=== PATIENT | male | born 1950 | race Caucasian/White ===

== ENCOUNTER 2018-12-01 18:40 | Inpatient (IN) | payer OTHER, MEDICAID ==
[~2018-12-01] VITALS: Ht 175.3 cm; Wt 87.7 kg
[~2018-12-01 18:40] MED LIST: HTN MEDS
[2018-12-01] MEDS: morphine 10 MG INJ IM ONE ×3 (19:00→19:15)
[2018-12-01] MEDS ORDERED: BUPIVACAINE 0.5% 30 ML VIAL INJ ONE (20:00)
[2018-12-01] MEDS ORDERED: OXYCODONE/ACETAMINOPHEN (5/325) TAB PO ONE (20:00)
[2018-12-01] MEDS: LIDOCAINE 1% (MPF) 30 ML INJ INJ ONE ×2 (20:00→21:40)
[2018-12-01] MEDS ORDERED: OMEP20CA16 PO (20:52)
[2018-12-01] MEDS ORDERED: AMLO1CAP10 PO (20:52)
[2018-12-01] MEDS ORDERED: METH10TA2 PO (20:52)
[2018-12-01] MEDS ORDERED: ONDANSETRON 4 MG INJ IV PRN (22:00)
[2018-12-01] MEDS ORDERED: ACETAMINOPHEN 325 MG TAB PO PRN (22:00)
--- NOTE | 2018-12-01 22:53 | CONS ---
Assessment/Plan Assessment/Plan Hospital Course (Demo Recall) 68-year-old male with trimalleolar right ankle fracture. At this time I discussed the patient that I recommend a hematoma block and reduction and splinting. Also recommended that he undergoes open reduction internal fixation of this bimalleolar ankle fracture as it is very unstable and displaced. I reviewed the benefits and risks with the patient. Risks include but not limited to medical complications, cardiopulmonary comp occasions, anesthetic complications, bleeding, infection, nonunion, malunion, hardware failure, traumatic arthritis, stiffness, pain, need for further surgery, neurovascular injury. He understood these benefits and risks and wished to proceed with surgery. Plan: Hematoma block and closed reduction of right trimalleolar ankle fracture. Nonweightbearing right lower extremity N.p.o. at midnight Pain control Elevate right lower extremity Plan for surgery tomorrow morning Medical clearance Assessment/Plan (Daily) Procedure: Hematoma block and closed reduction and splinting of right ankle fracture dislocation. The anterior medial aspect of the right ankle was prepped with alcohol. 5 mL of 1% lidocaine was used subcutaneously to numb the skin. This was followed by a large needle and 20 mL of 1:1 mixture of 1% lidocaine and 0.5% bupivacaine. This was injected into the ankle joint. The patient had good relief from pain. At this time the ankle was reduced with appropriate maneuvers. The lower leg was padded with cast padding followed by a posterior slab sugar tong plaster splint. A three-point mold was performed to hold the fracture reduced. Consultation Date/Type/Reason Admit Date/Time Date of Consultation: December 01, 2018 Reason for Consultation Right ankle fracture Date/Time of Note DATE: 12/01/18 TIME: 22:48 Hx of Present Illness This is a 68-year-old male who slipped and fell at his home today and presented emergency department with severe right ankle pain. He is unable to bear weight. On presentation the ankle had gross deformity. X-rays were obtained. X-rays demonstrate a trimalleolar ankle fracture orthopedics was consulted. Patient denies any numbness and tingling. He does have multiple medical problems include hepatitis C, hypertension, MYRA, GERD. He is on a methadone program secondary to opiate abuse in the past. He denies any previous ankle injury. Denies pain elsewhere. Denies head trauma. Denies loss of consciousness. Patient denies fever, chills, shortness of breath, chest pain, nausea/vomiting, constipation, diarrhea, numbness, and tingling. Past Medical History Hepatitis C Hypertension MYRA GERD Home Meds Reported Medications Methadone Hcl* (Methadone*) 10 Mg Tab, 40 MG PO DAILY, TAB 12/01/18 Omeprazole* (Omeprazole*) 20 Mg Capsule.dr, 20 MG PO DAILY, #30 CAP 12/01/18 Amlodipine Besylate/Benazepril (Amlodipine-Benazepril 5-20 mg) 1 Each Capsule, 1 CAP PO DAILY for 90 Days, #90 TAKE ONE CAPSULE BY MOUTH EVERY DAY 12/01/18 Discontinued Reported Medications [Htn Meds] No Conflict Check 11/29/10 Medications Current Medications Ondansetron HCl (Zofran Inj) 4 mg BRIDGE ORDER PRN IV NAUSEA/VOMITING; Start 12/01/18 at 22:00; Stop 12/02/18 at 21:59 Acetaminophen (Tylenol Tab) 650 mg ER BRIDGE PRN PO .MILD PAIN 1-3 OR TEMP; Start 12/01/18 at 22:00; Stop 12/02/18 at 21:59 Allergies: Coded Allergies: No Known Allergy (Unverified , 12/01/18) Past Surgical History Past Surgical Hx: noncontributory Family History Significant Family History: no pertinent family hx Social History Alcohol Use: rarely Smoking Status: Former smoker Drug Use: cocaine Exam/Review of Systems Exam Vitals Vital Signs Date Temp Pulse Resp B/P (MAP) Pulse Ox O2 O2 Flow FiO2 Time Delivery Rate 12/01/18 77 19 144/85 96 Room Air 22:35 (104) 12/01/18 98.8 18:45 Exam General: Awake, alert, in no acute distress, pleasant and cooperative Heart: regular rhythm Lungs: breathing comfortably, no tachypnea or dyspnea MUSCULOSKELETAL: Right lower extremity: Skin is intact. There is ecchymosis and swelling of the right ankle. There is gross deformity of the right ankle. There is diffuse tenderness palpation along entire right ankle. The remainder of the lower extremity was nontender to palpation. Sensation intact to light touch in a sural, saphenous, deep peroneal, superficial peroneal, medial and lateral plantar nerve distribution. Motor is intact, patient able to dorsiflex and plantarflex ankle and extend and flex great toe. Dorsalis Pedis pulse +2, Brisk capillary refill. Compartments are soft. Calves non-tender to palpation bilaterally. Results Result Diagram: 12/01/18212712/01/182127 Results 24hrs Laboratory Tests Test 12/01/18 21:28 White Blood Count 15.2 H Red Blood Count 4.24 L Hemoglobin 12.3 L Hematocrit 38.0 L Mean Corpuscular Volume 89.6 Mean Corpuscular Hemoglobin 29.0 Mean Corpuscular Hemoglobin Concent 32.4 Red Cell Distribution Width 14.1 Platelet Count 176 Mean Platelet Volume 11.3 H Immature Granulocytes % 0.400 Neutrophils % 86.8 H Lymphocytes % 7.6 L Monocytes % 4.8 Eosinophils % 0.1 Basophils % 0.3 Nucleated Red Blood Cells % 0.0 Immature Granulocytes # 0.060 H Neutrophils # 13.2 H Lymphocytes # 1.2 Monocytes # 0.7 Eosinophils # 0.0 Basophils # 0.1 Nucleated Red Blood Cells # 0.0 Prothrombin Time 13.0 Prothrombin Time Ratio 1.0 INR International Normalized Ratio 0.97 Activated Partial Thromboplast Time 26.4 Sodium Level 139 Potassium Level 4.7 Chloride Level 104 Carbon Dioxide Level 26 Anion Gap 9 Blood Urea Nitrogen 17 Creatinine 1.11 Est Glomerular Filtrat Rate mL/min > 60 Glucose Level 103 Calcium Level 9.3 Imaging Imaging 3 views of the right ankle demonstrate a trimalleolar ankle fracture with significant subluxation of the tibiotalar joint. 3 views of the right ankle post reduction demonstrate overlying cast material. We demonstrates a trimalleolar ankle fracture. Improved alignment of the tibiotalar joint Medications Medication Current Medications Ondansetron HCl (Zofran Inj) 4 mg BRIDGE ORDER PRN IV NAUSEA/VOMITING; Start 12/01/18 at 22:00; Stop 12/02/18 at 21:59 Acetaminophen (Tylenol Tab) 650 mg ER BRIDGE PRN PO .MILD PAIN 1-3 OR TEMP; Start 12/01/18 at 22:00; Stop 12/02/18 at 21:59 SARTHAK ESCAMILLA MD December 01, 2018 22:53
--- NOTE | 2018-12-01 22:57 | ERD ---
ER Documentation Chief Complaint Chief Complaint [id number],from home,R ankle pain,swelling,r/t [id number] HPI 68-year-old female brought in by ambulance after a slip and fall at home with right ankle pain. He denies any numbness or tingling. He denies any other injuries or pain. Pain is a 10 out of 10, worse with any type of movement of the right lower extremity, no alleviating factors, constant. ROS All systems reviewed and are negative except as per history of present illness. Medications Home Meds Reported Medications Methadone Hcl* (Methadone*) 10 Mg Tab, 40 MG PO DAILY, TAB 12/01/18 Omeprazole* (Omeprazole*) 20 Mg Capsule.dr, 20 MG PO DAILY, #30 CAP 12/01/18 Amlodipine Besylate/Benazepril (Amlodipine-Benazepril 5-20 mg) 1 Each Capsule, 1 CAP PO DAILY for 90 Days, #90 TAKE ONE CAPSULE BY MOUTH EVERY DAY 12/01/18 Discontinued Reported Medications [Htn Meds] No Conflict Check 11/29/10 Allergies Allergies: Coded Allergies: No Known Allergy (Unverified , 12/01/18) PMhx/Soc History of Surgery: Yes (Exploratory laparotomy, gall bladder removal) Anesthesia Reaction: No Hx Neurological Disorder: No Hx Respiratory Disorders: No Hx Cardiac Disorders: Yes (HTN) Hx Psychiatric Problems: Yes (anxiety) Hx Miscellaneous Medical Probl: Yes (chronic drug dependence, GERD) Hx Alcohol Use: No Hx Substance Use: Yes (. 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 HEAD: Atraumatic. No facial TTP. EYES: EOMI. PERRL. No subconjunctival hemorrhage ENT: Nose non-tender. No septal hematoma. Nasopharynx and oropharynx clear. No dental, lip, or tongue injury NECK: No cervical spine TTP RESPIRATORY: Clear to auscultation bilaterally. No increased work of breathing. CV: Regular rate and rhythm. Cap refill <2sec. 2+ Radial and 2+ dorsalis pedis pulses. ABDOMEN: Soft, non-distended, non-tender. No guarding or rebound. Normal active bowel sounds. BACK: No thoracic or lumbar spine TTP. No CVA tenderness. PELVIS: stable, nontender hips EXTREMITIES: Right lower extremity with ankle deformity and swelling. Bruising seen around the medial ankle. Unable to range secondary to pain. Proximal to the ankle, the bones are nontender and there are no deformities. No hip or knee joint swelling. 2+ DP and PT pulses. All other extremities normal to inspection and palpation without deformities and with full range of motion at all joints. SKIN: Warm, dry, pink. NEUROLOGIC: A&Ox4. No facial asymmetry. Motor and sensory function intact to all 4 extremities. Result Diagram: 12/01/18212712/01/182127 Results 24 hrs Laboratory Tests Test 12/01/18 21:28 White Blood Count 15.2 10^3/ul Red Blood Count 4.24 10^6/ul Hemoglobin 12.3 g/dl Hematocrit 38.0 % Mean Corpuscular Volume 89.6 fl Mean Corpuscular Hemoglobin 29.0 pg Mean Corpuscular Hemoglobin Concent 32.4 g/dl Red Cell Distribution Width 14.1 % Platelet Count 176 10^3/UL Mean Platelet Volume 11.3 fl Immature Granulocytes % 0.400 % Neutrophils % 86.8 % Lymphocytes % 7.6 % Monocytes % 4.8 % Eosinophils % 0.1 % Basophils % 0.3 % Nucleated Red Blood Cells % 0.0 /100WBC Immature Granulocytes # 0.060 10^3/ul Neutrophils # 13.2 10^3/ul Lymphocytes # 1.2 10^3/ul Monocytes # 0.7 10^3/ul Eosinophils # 0.0 10^3/ul Basophils # 0.1 10^3/ul Nucleated Red Blood Cells # 0.0 10^3/ul Prothrombin Time 13.0 Sec Prothrombin Time Ratio 1.0 INR International Normalized Ratio 0.97 Activated Partial Thromboplast Time 26.4 Sec Sodium Level 139 mmol/L Potassium Level 4.7 mmol/L Chloride Level 104 mmol/L Carbon Dioxide Level 26 mmol/L Anion Gap 9 Blood Urea Nitrogen 17 mg/dl Creatinine 1.11 mg/dl Est Glomerular Filtrat Rate mL/min > 60 mL/min Glucose Level 103 mg/dl Calcium Level 9.3 mg/dl Current Medications Medications Dose Sig/María Elena Start Time Status Last (Trade) Ordered Route PRN Stop Time Admin Dose Reason Admin Morphine 8 mg ONCE ONCE 12/01/18 DC 12/01/18 Sulfate IM 19:00 12/01/18 19:15 (morphine) 19:01 Oxycodone/ 1 tab ONCE ONCE 12/01/18 DC 12/01/18 Acetaminophen PO 20:00 12/01/18 19:52 (Percocet 20:01 (5/ 325)) Lidocaine 30 ml ONCE ONCE 12/01/18 DC (Xylocaine INJ 20:00 12/01/18 1% (Mpf)) 20:13 Bupivacaine 20 ml ONCE ONCE 12/01/18 DC HCl INJ 20:00 12/01/18 (Marcaine 20:13 0.5%) Ondansetron 4 mg BRIDGE ORDER 12/01/18 HCl (Zofran PRN IV 22:00 12/02/18 Inj) NAUSEA/VOMITI 21:59 NG 650 mg ER BRIDGE 12/01/18 Acetaminophen PRN PO 22:00 12/02/18 (Tylenol .MILD PAIN 21:59 Tab) 1-3 OR TEMP Procedures/MDM EMERGENT LABS AND DIAGNOSTIC STUDIES: Lab Results above were reviewed and interpreted by me. CBC: Leukocytosis, likely stress response BMP: [no e/o clinically significant electrolyte abnormality severe acidosis, alkalosis, renal failure, diabetic ketoacidosis] 12-lead EKG was interpreted by Zen Barrientos MD: Normal Sinus Rhythm Normal axis Normal intervals No acute ST or T wave changes suggestive of acute ischemia or STEMI. Radiology Results as interpreted by Radiology below were reviewed by Cherie Barrientos MD: X-ray right ankle shows trimalleolar fracture with displacement Initial Nursing notes reviewed. Previous Medical Records requested via the Electronic Health Record. EMERGENCY DEPARTMENT COURSE / MEDICAL DECISION MAKING: Patient is presenting with right ankle injury. X-rays show evidence of a severe right ankle fracture with subluxation. He is neurovascularly intact on exam. I spoke with the orthopedist on-call, who came to see the patient. He reduced the ankle and placed the ankle in the splint. He recommends admitting the patient for medical clearance and for urgent surgery Accepting Care Team: Current data and ongoing care discussed. Time: Time of admission Primary Provider: Dr. Hunter Consulting: Dr. Valente with orthopedics Outstanding Data: none Departure Diagnosis: Primary Impression: Trimalleolar fracture of right ankle Encounter type: initial encounter Fracture type: closed Qualified Codes: S82.851A - Displaced trimalleolar fracture of right lower leg, initial encounter for closed fracture Condition: TERRY Holland MD December 01, 2018 22:57
[2018-12-02] VITALS (25 sets, daily range): BP systolic 119–157; BP diastolic 61–94; PULSE 55–78; RESP 10–24; Ht 175.3 cm; Wt 87.7 kg
--- NOTE | 2018-12-02 00:22 | HP ---
Date/Time of Note Date/Time of Note DATE: 12/02/18 TIME: 00:22 Assessment/Plan VTE Prophylaxis Pharmacological prophylaxis: heparin Lines/Catheters IV Catheter Type (from Nrsg): Peripheral IV Assessment/Plan Assessment/Plan 1. Right Maleolar ankle Fracture : s/p slip and fall accident at home: Status post closed reduction in the ER with plan surgical intervention in a.m. -Pain management -There is a plan for surgical intervention in the morning. -EKG in the ER without ST-T wave abnormalities. Patient not acutely having chest pain and is stated that he is able to walk for about an hour without getti ng short of breath. Will order a 2D echo prior to surgery -will get cardiology for clearance -Positive pressure ventilation as needed, but patient looks comfortable so I doubt he will need it 2. Recently diagnosed sleep Apnea, per patient -Patient stated that he had a cholecystectomy 2 months ago. He was diagnosed with sleep apnea a couple weeks ago. Work-up for sleep apnea was started post-o p -Patient is not on CPAP or BiPAP at home. He said he is able to walk for an hour without getting tired 3. History of illicit drug use: Currently on methadone, which will be continued 4. Hypertension: BP is in acceptable range 5. History of hepatitis C: Follow-up with PCP as outpatient Result Diagram: 12/01/18212712/01/182127 Results 24hrs Laboratory Tests Test 12/01/18 21:28 White Blood Count 15.2 H Red Blood Count 4.24 L Hemoglobin 12.3 L Hematocrit 38.0 L Mean Corpuscular Volume 89.6 Mean Corpuscular Hemoglobin 29.0 Mean Corpuscular Hemoglobin Concent 32.4 Red Cell Distribution Width 14.1 Platelet Count 176 Mean Platelet Volume 11.3 H Immature Granulocytes % 0.400 Neutrophils % 86.8 H Lymphocytes % 7.6 L Monocytes % 4.8 Eosinophils % 0.1 Basophils % 0.3 Nucleated Red Blood Cells % 0.0 Immature Granulocytes # 0.060 H Neutrophils # 13.2 H Lymphocytes # 1.2 Monocytes # 0.7 Eosinophils # 0.0 Basophils # 0.1 Nucleated Red Blood Cells # 0.0 Prothrombin Time 13.0 Prothrombin Time Ratio 1.0 INR International Normalized Ratio 0.97 Activated Partial Thromboplast Time 26.4 Sodium Level 139 Potassium Level 4.7 Chloride Level 104 Carbon Dioxide Level 26 Anion Gap 9 Blood Urea Nitrogen 17 Creatinine 1.11 Est Glomerular Filtrat Rate mL/min > 60 Glucose Level 103 Calcium Level 9.3 HPI/ROS Admit Date/Time Admit Date/Time Hx of Present Illness This is a 68-year-old male with a history of hypertension, MYRA, GERD, hepatitis C, history of drug abuse on methadone who presented to ER complaining of right ankle fracture status post slip and fall accident on home on a wet floor. In the ER he is found to have a tri malleolus fracture which was reduced. Plan for surgery in the morning. EKG in the ER without ST-T wave abnormalities. Patient reported that he had a cholecystectomy about 2 months ago. He said a few weeks ago he was diagnosed with sleep apnea. Currently not using CPAP or BiPAP at home. He said he is able to walk for about an hour without getting short of breath. He denies chest pain will order a 2D echo prior to surgery. will get cardiology for clearance PMH/Family/Social Past Medical History Past Surgical Hx: other (see hpi) Family History Significant Family History: no pertinent family hx Social History Alcohol Use: heavy (2 beers a day) Smoking Status: Never smoker Drug Use: none Exam Constitutional: other (no acute distress) ENMT: nl external ears & nose Neck: supple, non-tender Respiratory: normal air movement Cardiovascular: nl pulses Gastrointestinal: soft Extremities: normal pulses Medical History: other (See HPI) Medications Current Medications Ondansetron HCl (Zofran Inj) 4 mg BRIDGE ORDER PRN IV NAUSEA/VOMITING; Start 12/01/18 at 22:00; Stop 12/02/18 at 21:59 Acetaminophen (Tylenol Tab) 650 mg ER BRIDGE PRN PO .MILD PAIN 1-3 OR TEMP; Start 12/01/18 at 22:00; Stop 12/02/18 at 21:59 Coded Allergies: No Known Allergy (Unverified , 12/01/18) Past Surgical History Past Surgical Hx: other (See HPI) Family History Significant Family History: no pertinent family hx Social History Alcohol Use: rarely Smoking Status: Former smoker Drug Use: other (He has history of illicit drug use) Exam/Review of Systems Vital Signs Vitals Vital Signs Date Temp Pulse Resp B/P (MAP) Pulse Ox O2 O2 Flow FiO2 Time Delivery Rate 5/3/19 77 19 144/85 96 Room Air 22:35 (104) 12/01/18 98.8 18:45 Exam Constitutional: other (No acute distress. Able to begin full sentence) Head: normocephalic, atraumatic Eyes: EOMI, PERRL Respiratory: clear to auscultation, normal air movement Cardiovascular: regular rate and rhythm Gastrointestinal: soft Extremities: other (Right lower extremity and foot is covered) MARK VELASQUEZ MD December 02, 2018 00:22
[2018-12-02] MEDS ORDERED: ALBUTEROL/IPRATROPIUM (NEB) 3 ML AMP HHN PRN (00:30)
[2018-12-02] MEDS ORDERED: NACL 0.9% 3 ML SYG IV SCH ×2 (00:30→19:00)
[2018-12-02] MEDS ORDERED: ONDANSETRON 4 MG INJ IV PRN ×2 (00:30→19:00)
[2018-12-02] MEDS: DEXTROSE 5%-0.45% NACL 1,000 ML IV SCH ×3 (00:53→21:00)
[2018-12-02] MEDS ORDERED: LIDOCAINE 2% (SDV) 5 ML INJ ONE (07:00)
[2018-12-02] MEDS: FAMOTIDINE 20 MG INJ IV SCH ×2 (09:34→22:04)
[2018-12-02] MEDS ORDERED: METHADONE 10 MG TAB PO ONE (10:00)
--- NOTE | 2018-12-02 12:19 | PN ---
Date/Time of Note Date/Time of Note DATE: 12/02/18 TIME: 12:13 Assessment/Plan VTE Prophylaxis Risk score (from Ns)>0 risk: 10 SCD applied (from Ns): No SCD contraindicated: other Pharmacological prophylaxis: NA/contraindicated Pharm contraindication: surgical contra Lines/Catheters IV Catheter Type (from Nrs): Peripheral IV Assessment/Plan Assessment/Plan 1. Right Malleolar ankle Fracture s/p mechanical fall - patient is s/p closed reduction in the ER - Ortho consultation appreciated and plans for surgical intervention - continue pain control - EKG with no acute ST changes. Patient recently had lap farshad with no complications 2. MYRA - continue outpatient workup 3. History of illicit drug use - continue on methadone 4. Hypertension - stable 5. History of hepatitis C - outpatient follow up 6. Disposition - Medically cleared for surgical intervention on Right ankle. Patient able to ambulate without SOB and denies any cardiac or pulmonary sx at this time Result Diagram: 12/02/18 0426 12/02/18 0426 Results 24hrs Laboratory Tests Test 12/01/18 21:28 12/02/18 04:26 White Blood Count 15.2 H 8.9 # Red Blood Count 4.24 L 3.97 L Hemoglobin 12.3 L 11.6 L Hematocrit 38.0 L 36.1 L Mean Corpuscular Volume 89.6 90.9 Mean Corpuscular Hemoglobin 29.0 29.2 Mean Corpuscular Hemoglobin Concent 32.4 32.1 Red Cell Distribution Width 14.1 14.4 Platelet Count 176 154 Mean Platelet Volume 11.3 H 11.9 H Immature Granulocytes % 0.400 0.200 Neutrophils % 86.8 H 57.8 Lymphocytes % 7.6 L 30.0 Monocytes % 4.8 10.8 Eosinophils % 0.1 0.9 Basophils % 0.3 0.3 Nucleated Red Blood Cells % 0.0 0.0 Immature Granulocytes # 0.060 H 0.020 Neutrophils # 13.2 H 5.2 Lymphocytes # 1.2 2.7 Monocytes # 0.7 1.0 H Eosinophils # 0.0 0.1 Basophils # 0.1 0.0 Nucleated Red Blood Cells # 0.0 0.0 Prothrombin Time 13.0 Prothrombin Time Ratio 1.0 INR International Normalized Ratio 0.97 Activated Partial Thromboplast Time 26.4 Sodium Level 139 140 Potassium Level 4.7 4.5 Chloride Level 104 104 Carbon Dioxide Level 26 28 Anion Gap 9 8 Blood Urea Nitrogen 17 17 Creatinine 1.11 1.03 Est Glomerular Filtrat Rate mL/min > 60 > 60 Glucose Level 103 115 Calcium Level 9.3 9.0 Phosphorus Level 3.6 Magnesium Level 2.1 Total Bilirubin 0.6 Direct Bilirubin 0.00 Indirect Bilirubin 0.6 Aspartate Amino Transf (AST/SGOT) 33 Alanine Aminotransferase (ALT/SGPT) 13 Alkaline Phosphatase 74 Total Protein 7.0 Albumin 3.9 Globulin 3.10 Albumin/Globulin Ratio 1.25 Subjective 24 Hr Interval Summary Free Text/Dictation Patient is doing well but complaining of constipation. Denies any chest pain, shortness of breath, dizziness, palpitations, or wheezing. Recently underwent lap farshad with no issues. Exam/Review of Systems Exam Vitals Vital Signs Date Temp Pulse Resp B/P (MAP) Pulse Ox O2 O2 Flow FiO2 Time Delivery Rate 12/02/18 98.2 78 18 127/69 94 Room Air 08:00 (88) Intake and Output 12/01/18 12/01/18 12/02/18 1515:00 23:00 07:00 IntakeIntake Total 400 ml BalanceBalance 400 ml Exam General: Patient is in no acute distress Neck: Supple Chest: Nontender Lungs: clear, no wheezing or rhonchi appreciated Heart: Normal S1-S2, Regular rhythm and rate. No murmur, S3, or S4 Abdomen: Soft , nontender, nondistended , bowel sounds are present. No guarding no rebound tenderness Extremities: Normal to inspection, no edema no cyanosis. cast in place on RLE Skin: no rashes or lesions appreciated Results Results 24hrs Laboratory Tests Test 12/01/18 21:28 12/02/18 04:26 White Blood Count 15.2 H 8.9 # Red Blood Count 4.24 L 3.97 L Hemoglobin 12.3 L 11.6 L Hematocrit 38.0 L 36.1 L Mean Corpuscular Volume 89.6 90.9 Mean Corpuscular Hemoglobin 29.0 29.2 Mean Corpuscular Hemoglobin Concent 32.4 32.1 Red Cell Distribution Width 14.1 14.4 Platelet Count 176 154 Mean Platelet Volume 11.3 H 11.9 H Immature Granulocytes % 0.400 0.200 Neutrophils % 86.8 H 57.8 Lymphocytes % 7.6 L 30.0 Monocytes % 4.8 10.8 Eosinophils % 0.1 0.9 Basophils % 0.3 0.3 Nucleated Red Blood Cells % 0.0 0.0 Immature Granulocytes # 0.060 H 0.020 Neutrophils # 13.2 H 5.2 Lymphocytes # 1.2 2.7 Monocytes # 0.7 1.0 H Eosinophils # 0.0 0.1 Basophils # 0.1 0.0 Nucleated Red Blood Cells # 0.0 0.0 Prothrombin Time 13.0 Prothrombin Time Ratio 1.0 INR International Normalized Ratio 0.97 Activated Partial Thromboplast Time 26.4 Sodium Level 139 140 Potassium Level 4.7 4.5 Chloride Level 104 104 Carbon Dioxide Level 26 28 Anion Gap 9 8 Blood Urea Nitrogen 17 17 Creatinine 1.11 1.03 Est Glomerular Filtrat Rate mL/min > 60 > 60 Glucose Level 103 115 Calcium Level 9.3 9.0 Phosphorus Level 3.6 Magnesium Level 2.1 Total Bilirubin 0.6 Direct Bilirubin 0.00 Indirect Bilirubin 0.6 Aspartate Amino Transf (AST/SGOT) 33 Alanine Aminotransferase (ALT/SGPT) 13 Alkaline Phosphatase 74 Total Protein 7.0 Albumin 3.9 Globulin 3.10 Albumin/Globulin Ratio 1.25 Medications Medication Current Medications Ondansetron HCl (Zofran Inj) 4 mg BRIDGE ORDER PRN IV NAUSEA/VOMITING; Start 12/01/18 at 22:00; Stop 12/02/18 at 21:59 Acetaminophen (Tylenol Tab) 650 mg ER BRIDGE PRN PO .MILD PAIN 1-3 OR TEMP; Start 12/01/18 at 22:00; Stop 12/02/18 at 21:59 Dextrose/Sodium Chloride 1,000 ml @ 100 mls/hr Q10H IV Last administered on 12/02/18at 09:54; Admin Dose 100 MLS/HR; Start 12/02/18 at 00:17 IV Flush (NS 3 ml) 3 ml PER PROTOCOL IV ; Start 12/02/18 at 00:30 Ondansetron HCl (Zofran Inj) 4 mg Q6H PRN IV NAUSEA/VOMITING; Start 12/02/18 at 00:30 Famotidine (Pepcid Iv) 20 mg Q12 IV Last administered on 12/02/18at 09:34; Admin Dose 20 MG; Start 12/02/18 at 09:00 Albuterol/ Ipratropium (Duoneb) 3 ml Q2H RESP THERAPY PRN HHN SHORTNESS OF BREATH; Start 12/02/18 at 00:30 ANGELO AGUILERA MD December 02, 2018 12:19
[2018-12-02] MEDS ORDERED: DOCUSATE SODIUM 100 MG CAP PO PRN (12:30)
[2018-12-02] MEDS ORDERED: POLYETHYLENE GLYCOL 17 GM PACKET PO PRN (12:30)
--- NOTE | 2018-12-02 13:56 | PREAC ---
Date/Time of Note Date/Time of Note DATE: 12/02/18 TIME: 13:54 Anesthesia Eval and Record Evaluation Time Pre-Procedure Interview DATE: 12/02/18 TIME: 13:54 Age 68 Sex male NPO: 8 hrs Preoperative diagnosis righjt ankle fx Planned procedure orif right ankle fx Past Medical History Past Medical History: Includes Cardio: HTN Pulm: Sleep Apnea Hepatic: Hepatitis Recreational drugs: Other (on methadone) Surgery & Anesthesia Issues No known issue Meds Anticoagulation: No Beta Ruben within 24 hr: No Reason Beta Ruben not given: Pt. not on B-Ruben Reported Medications Methadone Hcl* (Methadone*) 10 Mg Tab, 40 MG PO DAILY, TAB 12/01/18 Omeprazole* (Omeprazole*) 20 Mg Capsule.dr, 20 MG PO DAILY, #30 CAP 12/01/18 Amlodipine Besylate/Benazepril (Amlodipine-Benazepril 5-20 mg) 1 Each Capsule, 1 CAP PO DAILY for 90 Days, #90 TAKE ONE CAPSULE BY MOUTH EVERY DAY 12/01/18 Discontinued Reported Medications [Htn Meds] No Conflict Check 11/29/10 Current Medications Ondansetron HCl (Zofran Inj) 4 mg BRIDGE ORDER PRN IV NAUSEA/VOMITING; Start 12/01/18 at 22:00; Stop 12/02/18 at 21:59 Acetaminophen (Tylenol Tab) 650 mg ER BRIDGE PRN PO .MILD PAIN 1-3 OR TEMP; Start 12/01/18 at 22:00; Stop 12/02/18 at 21:59 Dextrose/Sodium Chloride 1,000 ml @ 100 mls/hr Q10H IV Last administered on 12/02/18at 09:54; Admin Dose 100 MLS/HR; Start 12/02/18 at 00:17 IV Flush (NS 3 ml) 3 ml PER PROTOCOL IV ; Start 12/02/18 at 00:30 Ondansetron HCl (Zofran Inj) 4 mg Q6H PRN IV NAUSEA/VOMITING; Start 12/02/18 at 00:30 Famotidine (Pepcid Iv) 20 mg Q12 IV Last administered on 12/02/18at 09:34; Admin Dose 20 MG; Start 12/02/18 at 09:00 Albuterol/ Ipratropium (Duoneb) 3 ml Q2H RESP THERAPY PRN HHN SHORTNESS OF BREATH; Start 12/02/18 at 00:30 Polyethylene Glycol (Miralax) 17 gm DAILY PRN PO CONSTIPATION; Start 12/02/18 at 12:30 Docusate Sodium (Colace) 100 mg BID PRN PO CONSTIPATION; Start 12/02/18 at 12:30 Meds reviewed: Yes Allergies Coded Allergies: No Known Allergy (Unverified , 12/01/18) Allergies Reviewed: Yes Labs/Studies Labs Reviewed: Reviewed by anesthesiologist Result Diagram: 12/02/18 0426 12/02/18 0426 Laboratory Tests 12/02/18 04:26 test: N/A Studies: ECG, CXR Pre-procedure Exam Last vitals Vital Signs Date Temp Pulse Resp B/P (MAP) Pulse Ox O2 O2 Flow FiO2 Time Delivery Rate 12/02/18 98.2 78 18 127/69 94 Room Air 08:00 (88) Airway: Adequate mouth opening, Adequate thyromental dist Mallampati: Mallampati II Teeth: Normal Lung: Normal Heart: Normal ASA Physical Status ASA physical status: 2 Emergency: None Planned Anesthetic General/MAC: LMA Nerve block: Femoral (right), Sciatic (right) Planned Pain Management Single shot nerve block, Parenteral pain med Pre-operative Attestations Prior to commencing anesthesia and surgery, the patient was re-evaluated, there was verification of: *The patient's identity *The results of appropriate recent lab work and preoperative vital signs *The above evaluation not changing prior to induction *Anesthetic plan, risk benefits, alternative and complications discussed with patient/family; questions answered; patient/family understands, accepts and wishes to proceed. HANS HOLLINGSWORTH December 02, 2018 13:56
[2018-12-02] MEDS ORDERED: BUPIVACAINE 0.5% (SDV) 30 ML INJ ONE (14:15)
--- NOTE | 2018-12-02 14:15 | HPN ---
Date/Time of Note Date/Time of Note DATE: 12/02/18 TIME: 14:15 Interval H&P Admission Note Pt. seen H&P reviewed: No system changes Patient denies fever, chills, shortness of breath, chest pain, nausea/vomiting, constipation, diarrhea, numbness, and tingling. MUSCULOSKELETAL: Right lower extremity Splint clean, dry, intact. Patient wiggles toes. Sensation intact light touch over toes. Brisk cap refill.Brisk capillary refill. SARTHAK ESCAMILLA MD December 02, 2018 14:15
[2018-12-02] MEDS ORDERED: MIDAZOLAM 1 MG/ML 2 ML INJ ONE (14:17)
[2018-12-02] MEDS ORDERED: POLYMYXIN/BACITRACIN 1L IRRIG ONE ×2 (15:08→17:42)
[2018-12-02] MEDS ORDERED: PROPOFOL 20 ML ONE (16:51)
[2018-12-02] MEDS ORDERED: ROCURONIUM 50 MG INJ ONE (16:52)
[2018-12-02] MEDS ORDERED: DEXAMETHASONE 4 MG/ML 5 ML INJ ONE (16:52)
[2018-12-02] MEDS ORDERED: ONDANSETRON 4 MG INJ ONE (16:52)
[2018-12-02] MEDS ORDERED: LABETALOL HCL 20MG INJ ONE (16:53)
[2018-12-02] MEDS ORDERED: morphine 10 MG INJ ONE (16:58)
[2018-12-02] MEDS ORDERED: KETOROLAC 30 MG INJ ONE (17:44)
[2018-12-02] MEDS ORDERED: CEFAZOLIN 1 GM INJ ONE (18:17)
--- NOTE | 2018-12-02 18:34 | PAC ---
Date/Time of Note Date/Time of Note DATE: 12/02/18 TIME: 18:33 Post-Anesthesia Notes Post-Anesthesia Note Last documented vital signs Vital Signs Date Temp Pulse Resp B/P (MAP) Pulse Ox O2 O2 Flow FiO2 Time Delivery Rate 12/02/18 99.3 71 16 144/73 98 18:27 12/02/18 78 18 127/69 94 Room Air 08:00 (88) Activity: WNL Respiratory function: WNL Cardiovascular function: WNL Mental status: Baseline Pain reasonably controlled: Yes Hydration appropriate: Yes Nausea/Vomiting absent: Yes HANS HOLLINGSWORTH December 02, 2018 18:34
--- NOTE | 2018-12-02 18:43 | RADRPT ---
Echocardiogram Report Patient Name: EMILY SILVERIOPatient ID: [id number] : 1950 (68y 5m)Study Date: 12/02/2018 8:46:49 AM Gender: MAccession #: [id number] Tech: [facility] Location: [address] Ref.Physician: MARK VELASQUEZ Height(Cm): BSA: Weight(Kg): Quality: AdequateAccount #: Procedures: Echocardiographic Report: Transthoracic echocardiogram with complete 2D, M-Mode, and doppler examination. Indications: Shortness of breath. Measurements: 2D/M Mode Doppler Measurement Value Normal Range Measurement Value Normal Range LVIDd 2D 4.4 [ 4.2 - 5.8 ] cm AV Peak Jacinto 1.5 [ 100.0 - 170.0 ] cm/sec LVIDs 2D 3.1 [ 2.5 - 4.0 ] cm AV Peak PG 9.0 [ 2.0 - 9.0 ] mmHg LVPWd 2D 1.0 [ 0.6 - 1.0 ] cm LVOT Peak Jacinto 1.2 [ 70.0 - 110.0 ] cm/sec IVSd 2D 1.5 [ 0.6 - 1.0 ] cm LVOT Peak PG 6.0 [ 2.0 - 6.0 ] mmHg AoR Diam 2D 2.8 [ 2.6 - 3.4 ] cm MV E Peak Jacinto 0.5 [ 60.0 - 130.0 ] cm/sec EDV 2D 89.6 [ 62.0 - 150.0 ] ml MV A Peak Jacinto 0.7 [ 100.0 - 120.0 ] cm/sec ESV 2D 37.6 [ 21.0 - 61.0 ] ml MV E/A 0.7 [ 0.8 - 1.5 ] ratio EF 2D 58.0 [ 52.0 - 72.0 ] percent MV Decel Time 296 [ 104 - 258 ] msec LA Dimen 2D 3.4 [ 3.0 - 4.0 ] cm Lat E` Jacinto 0.1 [ 10.0 - 15.0 ] cm/sec Lateral E/E` 4.2 [ 1.0 - 2.0 ] ratio MV E/A 0.7 [ 0.8 - 1.5 ] ratio TR Peak Jacinto 2.3 [ 100.0 - 280.0 ] cm/sec TR Peak PG 22.0 mmHg RVSP 25.0 [ 10.0 - 36.0 ] mmHg Findings: Left Ventricle: Lower limits of normal systolic function. Normal left ventricular cavity size. Moderate asymmetric septal hypertrophy. Ejection fraction is visually estimated at 50-55 %. Tissue Doppler/Mitral Doppler indices are consistent with impaired relaxation (Stage I diastolic dysfunction). Right Ventricle: Normal right ventricular size. Normal right ventricular systolic function. Left Atrium: The left atrium is normal in size. Right Atrium: The right atrium is normal in size. Mitral Valve: Mild mitral leaflet calcification. Mild mitral annular calcification. Trace mitral regurgitation. Aortic Valve: No hemodynamically significant aortic stenosis by doppler. Aortic cusps appear mildly calcified. Tricuspid Valve: Normal appearance of the tricuspid valve. Estimated peak PA systolic pressure 25 mmHg. There is trace tricuspid regurgitation. Pericardium: Normal pericardium with no significant pericardial effusion. Aorta: Normal aortic root. IVC: Normal size and normal respiratory collapse consistent with normal right atrial pressure. Conclusions: Lower limits of normal systolic function. Normal left ventricular cavity size. Moderate asymmetric septal hypertrophy. Ejection fraction is visually estimated at 50-55 %. Tissue Doppler/Mitral Doppler indices are consistent with impaired relaxation (Stage I diastolic dysfunction). Mild mitral leaflet calcification. Mild mitral annular calcification. Trace mitral regurgitation. Normal appearance of the tricuspid valve. Estimated peak PA systolic pressure 25 mmHg. There is trace tricuspid regurgitation. Electronically Signed By: Ricky Barbour 2018-12-02 18:42:56 PDT
[2018-12-02] MEDS ORDERED: hydrALAzine 20 MG INJ IV PRN (19:00)
[2018-12-02] MEDS ORDERED: oxyCODONE 5 MG TAB PO PRN ×2 (19:00)
[2018-12-02] MEDS ORDERED: NALOXONE (0.4 MG/ML) INJ IV PRN (19:00)
[2018-12-02] MEDS ORDERED: DIPHENHYDRAMINE 50 MG INJ IV PRN ×2 (19:00)
[2018-12-02] MEDS ORDERED: ALBUTEROL 0.083% (NEB) 2.5 MG/3 ML AMP HHN PRN (19:00)
[2018-12-02] MEDS ORDERED: LABETALOL HCL 20MG INJ IV PRN (19:00)
[2018-12-02] MEDS ORDERED: SENNA/DOCUSATE NA (8.6MG/50MG) TAB PO PRN (19:00)
[2018-12-02] MEDS ORDERED: EPHEDrine SULFATE 50 MG/5 ML SYG IV PRN (19:00)
[2018-12-02] MEDS ORDERED: DOCUSATE SODIUM 100 MG CAP PO ONE (19:00)
[2018-12-02] MEDS ORDERED: MIDAZOLAM 1 MG/ML 2 ML INJ IV PRN (19:00)
[2018-12-02] MEDS ORDERED: NA PHOSPHATE/BIPHOS 133 ML ENEMA PR PRN (19:00)
[2018-12-02] MEDS ORDERED: MEPERIDINE 25 MG INJ IV PRN (19:00)
[2018-12-02] MEDS ORDERED: HYDROmorphONE 1 MG/5 ML IV SYRINGE IV PRN ×3 (19:00)
[2018-12-02] MEDS ORDERED: METOCLOPRAMIDE 10 MG INJ IV PRN (19:00)
[2018-12-02] MEDS ORDERED: KETOROLAC 30 MG INJ IV PRN (19:00)
[2018-12-02] MEDS ORDERED: OXYCODONE/ACETAMINOPHEN (5/325) TAB PO PRN ×2 (19:00)
[2018-12-02] MEDS ORDERED: BISACODYL 10 MG SUPP PR PRN (19:00)
[2018-12-02] MEDS ORDERED: FENTAnyl 50 MCG/ML VIAL IV PRN ×3 (19:00)
[2018-12-02] MEDS: CEFAZOLIN 2 GM/50 ML (PMX) 50 ML IVPB SCH (19:07)
[2018-12-02] MEDS: LACTATED RINGER'S 1,000 ML IV SCH (19:08)
--- NOTE | 2018-12-02 20:32 | OPR ---
Date/Time of Note Date/Time of Note DATE: 12/02/18 TIME: 20:15 Operative Report Procedure Date: December 02, 2018 Preoperative Diagnosis Right ankle trimalleolar fracture Postoperative Diagnosis As above Operation/Procedure Performed Open reduction internal fixation of medial and lateral malleoli of right ankle Application short leg splint Surgeon see signature line Machine Stoppage Frequency Checker None Anesthesia Type: general Tourniquet Time: 120 minutes Estimated Blood Loss: 50 - 100 ml's Transfusion none Specimen None Grafts/Implants Jose distal fibular locking plate: 6-hole Two 4.0 cannulated threaded screws Complications none Pt Condition Post Procedure: stable Disposition: PACU Procedure Description Indications and consent: This is 68-year-old male who presented emergency department [facility] for right ankle pain and deformity. He slipped while at home on a wet floor. At presentation he did have some tingling throughout his foot. Stated that this was new since his injury. He denied any head injury or loss of consciousness. He was found to have a trimalleolar right ankle fracture. Orthopedics was consulted a hematoma block was performed closed reduction short leg splinting was performed. At that time given the instability of the ankle joint it was recommended that he undergo open reduction internal fixation. I reviewed the benefits and risks with the patient. Risks include but not limited to medical complications, anesthetic complications, cardiopulmonary, bleeding, infection, nonunion, malunion, hardware failure, neurovascular injury, traumatic arthritis, stiffness, pain, need for further surgery. He understood these benefits and risks and wished to proceed with surgery. Procedure in detail: Patient was brought to the operating room. He was transferred from the hospital bed to the operating table. At this time anesthesia gave the patient local block and administered general anesthesia. A tourniquet was placed over the right thigh. This blood was taken down. It was noticed at this time that there were serous fracture blisters over the posterior medial aspect of the calf. The fracture blisters were small. The right lower extremity was prepped and draped in normal sterile fashion. A timeout was performed confirming patient's name medical record number diagnosis procedure to be performed and laterality procedure. Ancef was dosed by anesthesia. At this time an Esmarch was used to exsanguinate the extremity the tourniquet was inflated to 250 mmHg. Fluoroscopy was used to zeke out below the joint line as well as the fracture. A longitudinal incision was made along the distal fibula. The lateral malleolus was exposed by sharp dissection. Approximately blunt dissection and Metzenbaum scissors were used to carefully dissect down the bone in order to identify and protect the superficial peroneal nerve. The distal fibula was exposed. There was a significant comminution anteriorly. There was a long oblique fracture line. Unfortunately however most of the anterior cortex where the lag screw would go was fractured and comminuted. It was very difficult to gain reduction. The fibula did not want to come out to length. A joystick was made using a K wire placed in the distal fragment. Using this and lobster-claw on the proximal fragment of the fracture was held reduced with a [id number] clamp. A 3.5 mm lag screw was placed to hold reduction compressed the fracture. Of note a countersink was used to given the extreme angle of this lag screw. The lag screw did hold reduction although it was tenuous. The quality of bone was poor and continued to fragment. Given the poor bone quality it was decided to use the distal fibular locking plate. This was placed over the lateral distal fibula. Using fluoroscopy was placed in appropriate position and held in place with K wires proximally and distally. A bicortical nonlocking screw was placed in the shaft proximally to compress the plate down to bone. The same was done in the distal fragment in order to compress the plate to the bone. Once this was done the most 3 distal screw holes were filled with locking screws. The nonlocking screw placed in the distal fragment was then exchanged for a locking screw given poor purchase. 2 more proximal nonlocking screws were placed in the shaft. Fluoroscopy demonstrated anatomic reduction and good positioning of all hardware. At this time attention turned towards the medial side. A longitudinal incision was made over the medial malleolus. The medial malleolus was distracted in order to clean out the fracture hematoma and entrapped periosteum. The dome of the talus looked okay. There was no significant damage. The medial malleolus was then reduced with a [id number] clamp. Again poor bone quality was noted. Medial malleolus was reduced on visual inspection as well as on fluoroscopy. 2 guide pins were placed parallel to each other in appropriate position for cannulated partially-threaded screws. The length of the guide pins were measured. The appropriate drill was used to open up the cortex. Appropriate length cannulated partially-threaded screws was placed. Good reduction and compression of the fracture was maintained. At this time a manual stress view was obtained. It did not show any widening of the mortise. Therefore syndesmotic screw was not needed. At this time both wounds were cups irrigated. Deep tissues were closed with 0 Vicryl followed by 2-0 Vicryl for subcutaneous tissues. Skin was closed with 2-0 nylon. The patient was very swollen. The skin was very tight. The compartments were compressible. All counts were correct x2 A plaster short leg splint was applied. Disposition: Patient was extubated transferred to PACU in stable condition. He will receive Ancef 2 g every 8 hours for 24 hours. He will have strict elevation of the right lower extremity. He will remain in the hospital likely until Tuesday to monitor for swelling. He will be nonweightbearing on his right lower extremity. This will be for a minimum of 6 weeks and will be reevaluated based on x-rays and clinical examination. He will be on aspirin 81 mg twice daily for 6 weeks. SARTHAK ESCAMILLA MD December 02, 2018 20:30
[2018-12-02] MEDS ORDERED: MAGNESIUM HYDROXIDE 30ML CUP PO PRN (21:00)
[2018-12-02] MEDS: ACETAMINOPHEN 500 MG TAB PO SCH (22:00)
[2018-12-02] MEDS: GABAPENTIN 300 MG CAP PO SCH (22:02)
[2018-12-03 00:15] VITALS: BP 124/67; PULSE 65; RESP 18
[2018-12-03 02:15] VITALS: PULSE 64; RESP 17
[2018-12-03] MEDS: CEFAZOLIN 2 GM/50 ML (PMX) 50 ML IVPB SCH ×2 (03:22→12:15)
[2018-12-03] MEDS: DEXTROSE 5%-0.45% NACL 1,000 ML IV SCH ×2 (05:52→16:17)
[2018-12-03] MEDS: ACETAMINOPHEN 500 MG TAB PO SCH ×3 (05:54→21:15)
[2018-12-03 07:25] VITALS: BP 125/66; PULSE 54; RESP 18
[2018-12-03] MEDS: LACTATED RINGER'S 1,000 ML IV SCH ×2 (08:47→19:43)
[2018-12-03] MEDS: DOCUSATE SODIUM 100 MG CAP PO SCH ×2 (08:47→21:15)
[2018-12-03] MEDS: ASPIRIN (EC) 81 MG TAB PO SCH ×2 (08:47→21:15)
[2018-12-03] MEDS: FAMOTIDINE 20 MG INJ IV SCH (08:47)
[2018-12-03] MEDS ORDERED: METHADONE 10 MG TAB PO SCH (09:30)
[2018-12-03] MEDS: PANTOPRAZOLE (EC) 40 MG TAB PO SCH (10:37)
[2018-12-03] MEDS: METHADONE 10 MG TAB PO SCH (10:38)
[2018-12-03] MEDS: BENAZEPRIL 20 MG TAB PO SCH (10:38)
[2018-12-03] MEDS: AMLODIPINE 5 MG TAB PO SCH (10:38)
--- NOTE | 2018-12-03 11:08 | PN ---
Date/Time of Note Date/Time of Note DATE: 12/03/18 TIME: 11:00 Assessment/Plan VTE Prophylaxis Risk score (from Nsg)>0 risk: 12 SCD applied (from Nsg): Yes Pharmacological prophylaxis: other Lines/Catheters IV Catheter Type (from Nrsg): Peripheral IV Urinary Cath still in place: No Assessment/Plan Assessment/Plan 1. Right Malleolar ankle Fracture s/p mechanical fall s/p - patient is s/p closed reduction in the ER and s/p ORIF of medial and lateral malleoli of right ankle 12/02/18 - Ortho consultation appreciated and recommending strict elevated of RLE and NWB for at least 6 weeks - continue pain control - EKG with no acute ST changes. Patient recently had lap farshad with no complications 2. MYRA - continue outpatient workup - ECHO with preserved EF and no pulm HTN appreciated 3. History of illicit drug use - continue on methadone 4. Hypertension - stable 5. History of hepatitis C - outpatient follow up 6. Disposition - Will need to remain inpatient until at least Tuesday per Dr. Valente recommendations to monitor for swelling. PT ordered and NWB RLE for 6 weeks. - CM consultation placed for placement given patient lives alone Result Diagram: 12/03/18 0450 12/03/18 0450 Results 24hrs Laboratory Tests Test 12/03/18 04:50 White Blood Count 9.0 Red Blood Count 3.80 L Hemoglobin 11.1 L Hematocrit 34.9 L Mean Corpuscular Volume 91.8 Mean Corpuscular Hemoglobin 29.2 Mean Corpuscular Hemoglobin Concent 31.8 L Red Cell Distribution Width 14.5 Platelet Count 143 Mean Platelet Volume 11.8 H Immature Granulocytes % 0.300 Neutrophils % 81.2 H Lymphocytes % 9.6 L Monocytes % 8.9 Eosinophils % 0.0 Basophils % 0.0 Nucleated Red Blood Cells % 0.0 Immature Granulocytes # 0.030 Neutrophils # 7.3 Lymphocytes # 0.9 Monocytes # 0.8 Eosinophils # 0.0 Basophils # 0.0 Nucleated Red Blood Cells # 0.0 Sodium Level 140 Potassium Level 5.1 Chloride Level 104 Carbon Dioxide Level 28 Anion Gap 8 Blood Urea Nitrogen 15 Creatinine 0.90 Est Glomerular Filtrat Rate mL/min > 60 Glucose Level 150 Calcium Level 8.8 Phosphorus Level 3.2 Magnesium Level 1.9 Subjective 24 Hr Interval Summary Free Text/Dictation Patient doing well but states can tell nerve block is wearing off. Lives alone at home and concerning about being NWB for 6 weeks. Exam/Review of Systems Exam Vitals Vital Signs Date Temp Pulse Resp B/P (MAP) Pulse Ox O2 O2 Flow FiO2 Time Delivery Rate 12/03/18 98.0 54 18 125/66 93 Room Air 07:25 (85) Intake and Output 12/02/18 12/02/18 12/03/18 1515:00 23:00 07:00 IntakeIntake Total 2250 ml 600 ml 1210 ml OutputOutput Total 300 ml 1000 ml 1400 ml BalanceBalance 1950 ml -400 ml -190 ml Exam General: Patient is in no acute distress. answering questions appropriately Neck: Supple Lungs: clear, no wheezing or rhonchi appreciated Heart: Normal S1-S2, Regular rhythm and rate. No murmur, S3, or S4 Abdomen: Soft , nontender, nondistended , bowel sounds are present. No guarding no rebound tenderness Extremities: Normal to inspection, no edema no cyanosis. cast in place on RLE Skin: no rashes or lesions appreciated Results Results 24hrs Laboratory Tests Test 12/03/18 04:50 White Blood Count 9.0 Red Blood Count 3.80 L Hemoglobin 11.1 L Hematocrit 34.9 L Mean Corpuscular Volume 91.8 Mean Corpuscular Hemoglobin 29.2 Mean Corpuscular Hemoglobin Concent 31.8 L Red Cell Distribution Width 14.5 Platelet Count 143 Mean Platelet Volume 11.8 H Immature Granulocytes % 0.300 Neutrophils % 81.2 H Lymphocytes % 9.6 L Monocytes % 8.9 Eosinophils % 0.0 Basophils % 0.0 Nucleated Red Blood Cells % 0.0 Immature Granulocytes # 0.030 Neutrophils # 7.3 Lymphocytes # 0.9 Monocytes # 0.8 Eosinophils # 0.0 Basophils # 0.0 Nucleated Red Blood Cells # 0.0 Sodium Level 140 Potassium Level 5.1 Chloride Level 104 Carbon Dioxide Level 28 Anion Gap 8 Blood Urea Nitrogen 15 Creatinine 0.90 Est Glomerular Filtrat Rate mL/min > 60 Glucose Level 150 Calcium Level 8.8 Phosphorus Level 3.2 Magnesium Level 1.9 Medications Medication Current Medications Dextrose/Sodium Chloride 1,000 ml @ 100 mls/hr Q10H IV Last administered on 12/02/18at 09:54; Admin Dose 100 MLS/HR; Start 12/02/18 at 00:17 IV Flush (NS 3 ml) 3 ml PER PROTOCOL IV ; Start 12/02/18 at 00:30 Ondansetron HCl (Zofran Inj) 4 mg Q6H PRN IV NAUSEA/VOMITING; Start 12/02/18 at 00:30 Albuterol/ Ipratropium (Duoneb) 3 ml Q2H RESP THERAPY PRN HHN SHORTNESS OF BREATH; Start 12/02/18 at 00:30 Polyethylene Glycol (Miralax) 17 gm DAILY PRN PO CONSTIPATION; Start 12/02/18 at 12:30 Docusate Sodium (Colace) 100 mg BID PRN PO CONSTIPATION; Start 12/02/18 at 12:30 Lactated Ringer's 1,000 ml @ 80 mls/hr [id number] IV Last administered on 12/03/18at 08:47; Admin Dose 80 MLS/HR; Start 12/02/18 at 18:43 IV Flush (NS 3 ml) 3 ml PER PROTOCOL IV ; Start 12/02/18 at 19:00 Oxycodone HCl (Roxicodone) 15 mg Q4H PRN PO .PAIN; Start 12/02/18 at 19:00 Oxycodone HCl (Roxicodone) 10 mg Q4H PRN PO .PAIN; Start 12/02/18 at 19:00 Oxycodone HCl (Roxicodone) 5 mg Q4H PRN PO .PAIN; Start 12/02/18 at 19:00 Hydromorphone HCl (Dilaudid) 1 mg Q3H PRN IV .BREAKTHROUGH PAIN; Start 12/02/18 at 19:00 Acetaminophen (Tylenol Tab) 1,000 mg Q8 PO Last administered on 12/03/18at 05:54; Admin Dose 1,000 MG; Start 12/02/18 at 22:00 Ondansetron HCl (Zofran Inj) 4 mg Q4H PRN IV NAUSEA/VOMITING; Start 12/03/18 at 19:00 Cefazolin Sodium/ Dextrose 50 ml @ 100 mls/hr Q8H IVPB Last administered on 12/03/18at 03:22; Admin Dose 100 MLS/HR; Start 12/02/18 at 19:00; Stop 12/03/18 at 11:29 Gabapentin (Neurontin) 300 mg QHS PO Last administered on 12/02/18at 22:02; Admin Dose 300 MG; Start 12/02/18 at 21:00 Pantoprazole (Protonix Tab) 40 mg DAILY@06 PO ; Start 12/04/18 at 06:00 Docusate Sodium (Colace) 200 mg BID PO Last administered on 12/03/18at 08:47; Admin Dose 200 MG; Start 12/03/18 at 09:00; Stop 12/06/18 at 08:59 Simethicone (Mylicon) 80 mg TID PRN PO .GAS; Start 12/02/18 at 19:00 Senna/Docusate Sodium (Senokot-S) 2 tab BID PRN PO .CONSTIPATION; Start 12/02/18 at 19:00 Magnesium Hydroxide (Milk Of Mag) 30 ml HS PRN PO .CONSTIPATION; Start 12/02/18 at 21:00 Bisacodyl (Dulcolax Supp) 10 mg DAILY PRN [place] .CONSTIPATION; Start 12/02/18 at 19:00 Sodium Biphosphate/ Sodium Phosphate (Fleet Enema) 133 ml DAILY PRN [place] .CONSTIPATION; Start 12/02/18 at 19:00 Diphenhydramine HCl (Benadryl) 25 mg Q4H PRN IV .ITCHING; Start 12/02/18 at 19:00 Naloxone HCl (Narcan) 0.2 mg Q2M PRN IV .RESP RATE; Start 12/02/18 at 19:00 Aspirin (Halfprin) 81 mg BID PO Last administered on 12/03/18 08:47; Admin Dose 81 MG; Start 12/03/18 at 09:00 Pantoprazole (Protonix Tab) 40 mg DAILY@06 PO Last administered on 12/03/18 10:37; Admin Dose 40 MG; Start 12/03/18 at 10:00 Amlodipine Besylate (Norvasc) 5 mg DAILY PO Last administered on 12/03/18 10:38; Admin Dose 5 MG; Start 12/03/18 at 09:30 Benazepril HCl (Lotensin) 20 mg DAILY PO Last administered on 12/03/18 10:38; Admin Dose 20 MG; Start 12/03/18 at 09:30 Methadone HCl (Methadone) 50 mg DAILY PO Last administered on 5/5/19at 10:38; Admin Dose 50 MG; Start 12/03/18 at 10:00 ANGELO AGUILERA MD December 03, 2018 11:08
[2018-12-03] MEDS: oxyCODONE 5 MG TAB PO PRN (12:19)
--- NOTE | 2018-12-03 14:33 | PN ---
Date/Time of Note Date/Time of Note DATE: 12/03/18 TIME: 14:29 Assessment/Plan Lines/Catheters IV Catheter Type (from Nrsg): Peripheral IV Toussaint in Place (from Nrsg): No Assessment/Plan Chief Complaint/Hosp Course 68-year-old male postop day #1 status post ORIF right ankle fracture. Patient did receive a preoperative nerve block. Patient continues to have significant decreased sensation of her foot and inability to wiggle toes. There is sensation over the anterior ankle. He does remain swollen but compartments are compressible. At this time I do not have concern for compartment syndrome but this will continue to be monitored. It is concerned that he continues to have decreased sensation. Would have explained that the block to have been worn off by now. The superficial peroneal nerve was identified and protected during surgery. Patient could be experiencing neuropraxia. Plan: Nonweightbearing right lower extremity PT Regular diet Strict elevation right lower extremity will recheck patient's neurovascular exam later today Likely discharge tomorrow. Subjective 24 Hr Interval Summary Patient doing well No acute events overnight Pain is well controlled. States foot is still numb. Exam/Review of Systems Vital Signs Vitals Vital Signs Date Temp Pulse Resp B/P (MAP) Pulse Ox O2 O2 Flow FiO2 Time Delivery Rate 12/03/18 98.0 54 18 125/66 93 Room Air 07:25 (85) Intake and Output 12/02/18 12/02/18 12/03/18 1515:00 23:00 07:00 IntakeIntake Total 2250 ml 600 ml 1210 ml OutputOutput Total 300 ml 1000 ml 1400 ml BalanceBalance 1950 ml -400 ml -190 ml Exam Free Text/Dictation Right lower extremity: Splint: clean, dry, and intact. splint partially exposed to examine compar tments. Compartments are full but compressible Sensation not intact to light touch over toes. Sensation further proximally over anterior ankle is decreased but intact. Patient is unable to wiggle toes. Brisk cap refill. Results Result Diagram: 12/03/18 0450 12/03/18 0450 SARTHAK ESCAMILLA MD December 03, 2018 14:33
[2018-12-03 16:27] VITALS: BP 121/60; PULSE 58; RESP 18
[2018-12-03] MEDS: HYDROmorphONE 1 MG/ML SYG IV PRN (18:13)
[2018-12-03] MEDS ORDERED: ONDANSETRON 4 MG INJ IV PRN (19:00)
[2018-12-03 19:24] VITALS: BP 136/68; PULSE 60; RESP 16
[2018-12-03] MEDS: GABAPENTIN 300 MG CAP PO SCH (21:15)
[2018-12-04 00:49] VITALS: BP 126/69; PULSE 67; RESP 16
--- NOTE | 2018-12-04 01:09 | PN ---
Date/Time of Note Date/Time of Note DATE: 12/04/18 TIME: 01:07 Assessment/Plan Lines/Catheters IV Catheter Type (from Nrsg): Peripheral IV Toussaint in Place (from Nrsg): No Assessment/Plan Chief Complaint/Hosp Course 68-year-old male postop day #2 status post ORIF right ankle fracture. Patient did receive a preoperative nerve block. The patient has had significant improvement in sensation as well as motor since last seen. Very low concern for any peripheral nerve injury. Expect the patient to continue to improve. Plan: Nonweightbearing right lower extremity PT Regular diet Strict elevation right lower extremity will recheck patient's neurovascular exam later today Likely discharge tomorrow. Subjective 24 Hr Interval Summary Patient doing well No acute events overnight Pain is moderately well controlled Exam/Review of Systems Vital Signs Vitals Vital Signs Date Temp Pulse Resp B/P (MAP) Pulse Ox O2 O2 Flow FiO2 Time Delivery Rate 12/04/18 99.1 67 16 126/69 93 Nasal 00:49 (88) Cannula Intake and Output 12/03/18 12/03/18 12/04/18 1414:59 22:59 06:59 IntakeIntake Total 390 ml 1300 ml 600 ml OutputOutput Total 930 ml 800 ml 450 ml BalanceBalance -540 ml 500 ml 150 ml Exam Free Text/Dictation Right lower extremity: Splint: Clean, dry, and intact. Swelling decreased over foot and toes. Sensation slightly decreased but intact to light touch in a sural, saphenous, deep peroneal, superficial peroneal, medial and lateral plantar nerve distribution. Motor is intact, patient able to extend and flex great toe. Dorsalis Pedis pulse +2, Brisk capillary refill. Compartments are soft. Results Result Diagram: 12/03/18 0450 12/03/18 0450 SARTHAK ESCAMILLA MD December 04, 2018 01:09
[2018-12-04] MEDS: DEXTROSE 5%-0.45% NACL 1,000 ML IV SCH ×2 (02:17→12:17)
[2018-12-04 04:04] VITALS: BP 118/75; PULSE 53; RESP 18
[2018-12-04] MEDS ORDERED: PANTOPRAZOLE (EC) 40 MG TAB PO SCH (06:00)
[2018-12-04] MEDS: ACETAMINOPHEN 500 MG TAB PO SCH ×2 (06:00→13:53)
[2018-12-04] MEDS: PANTOPRAZOLE (EC) 40 MG TAB PO SCH (06:32)
[2018-12-04 08:05] VITALS: BP 134/75; PULSE 52; RESP 18
[2018-12-04] MEDS: LACTATED RINGER'S 1,000 ML IV SCH (08:13)
[2018-12-04] MEDS: BENAZEPRIL 20 MG TAB PO SCH (09:00)
[2018-12-04] MEDS: ASPIRIN (EC) 81 MG TAB PO SCH (09:00)
[2018-12-04] MEDS: DOCUSATE SODIUM 100 MG CAP PO SCH (09:00)
[2018-12-04] MEDS: AMLODIPINE 5 MG TAB PO SCH (09:01)
[2018-12-04] MEDS: METHADONE 10 MG TAB PO SCH (09:04)
--- NOTE | 2018-12-04 10:17 | PN ---
Date/Time of Note Date/Time of Note DATE: 12/04/18 TIME: 10:15 Assessment/Plan VTE Prophylaxis Risk score (from Nsg)>0 risk: 10 SCD applied (from Nsg): Yes Pharmacological prophylaxis: other Lines/Catheters IV Catheter Type (from Nrsg): Saline Lock Urinary Cath still in place: No Assessment/Plan Hospital Course General: Patient is in no acute distress. answering questions appropriately Neck: Supple Lungs: clear, no wheezing or rhonchi appreciated Heart: Normal S1-S2, Regular rhythm and rate. No murmur, S3, or S4 Abdomen: Soft , nontender, nondistended , bowel sounds are present. No guarding no rebound tenderness Extremities: Normal to inspection, no edema no cyanosis. cast in place on RLE Skin: no rashes or lesions appreciated assessment and plan: 1. Right Malleolar ankle Fracture s/p mechanical fall s/p - patient is s/p closed reduction in the ER and s/p ORIF of medial and lateral malleoli of right ankle 12/02/18 - Ortho consultation appreciated and recommending strict elevated of RLE and NWB for at least 6 weeks - continue pain control - EKG with no acute ST changes. Patient recently had lap farshad with no complications 2. MYRA - continue outpatient workup - ECHO with preserved EF and no pulm HTN appreciated 3. History of illicit drug use - continue on methadone 4. Hypertension - stable 5. History of hepatitis C - outpatient follow up 6. Disposition - Will need to remain inpatient until at least Tuesday (today) per Dr. Valente recommendations to monitor for swelling. PT ordered and NWB RLE for 6 weeks. - CM consultation placed for placement given patient lives alone -d/c per Ortho, PT recommending SNF. Result Diagram: 12/04/18 0419 12/04/18 0419 Results 24hrs Laboratory Tests Test 12/04/18 04:19 White Blood Count 11.0 #H Red Blood Count 3.50 L Hemoglobin 10.2 L Hematocrit 32.1 L Mean Corpuscular Volume 91.7 Mean Corpuscular Hemoglobin 29.1 Mean Corpuscular Hemoglobin Concent 31.8 L Red Cell Distribution Width 14.6 H Platelet Count 129 L Mean Platelet Volume 12.1 H Immature Granulocytes % 0.400 Neutrophils % 60.1 Lymphocytes % 27.8 Monocytes % 10.7 Eosinophils % 0.7 Basophils % 0.3 Nucleated Red Blood Cells % 0.0 Immature Granulocytes # 0.040 H Neutrophils # 6.6 Lymphocytes # 3.1 H Monocytes # 1.2 H Eosinophils # 0.1 Basophils # 0.0 Nucleated Red Blood Cells # 0.0 Sodium Level 141 Potassium Level 3.7 Chloride Level 106 Carbon Dioxide Level 29 Anion Gap 6 Blood Urea Nitrogen 15 Creatinine 1.01 Glucose Level 94 # Calcium Level 8.6 Phosphorus Level 2.2 #L Magnesium Level 1.9 Albumin 3.4 Exam/Review of Systems Exam Vitals Vital Signs Date Temp Pulse Resp B/P (MAP) Pulse Ox O2 O2 Flow FiO2 Time Delivery Rate 12/04/18 98.0 52 18 134/75 99 Room Air 08:05 (94) 12/04/18 2.0 04:04 Intake and Output 12/03/18 12/03/18 12/04/18 1515:00 23:00 07:00 IntakeIntake Total 390 ml 1300 ml 700 ml OutputOutput Total 1330 ml 400 ml 750 ml BalanceBalance -940 ml 900 ml -50 ml Results Results 24hrs Laboratory Tests Test 12/04/18 04:19 White Blood Count 11.0 #H Red Blood Count 3.50 L Hemoglobin 10.2 L Hematocrit 32.1 L Mean Corpuscular Volume 91.7 Mean Corpuscular Hemoglobin 29.1 Mean Corpuscular Hemoglobin Concent 31.8 L Red Cell Distribution Width 14.6 H Platelet Count 129 L Mean Platelet Volume 12.1 H Immature Granulocytes % 0.400 Neutrophils % 60.1 Lymphocytes % 27.8 Monocytes % 10.7 Eosinophils % 0.7 Basophils % 0.3 Nucleated Red Blood Cells % 0.0 Immature Granulocytes # 0.040 H Neutrophils # 6.6 Lymphocytes # 3.1 H Monocytes # 1.2 H Eosinophils # 0.1 Basophils # 0.0 Nucleated Red Blood Cells # 0.0 Sodium Level 141 Potassium Level 3.7 Chloride Level 106 Carbon Dioxide Level 29 Anion Gap 6 Blood Urea Nitrogen 15 Creatinine 1.01 Glucose Level 94 # Calcium Level 8.6 Phosphorus Level 2.2 #L Magnesium Level 1.9 Albumin 3.4 Medications Medication Current Medications Dextrose/Sodium Chloride 1,000 ml @ 100 mls/hr Q10H IV Last administered on 12/02/18at 09:54; Admin Dose 100 MLS/HR; Start 12/02/18 at 00:17 IV Flush (NS 3 ml) 3 ml PER PROTOCOL IV ; Start 12/02/18 at 00:30 Albuterol/ Ipratropium (Duoneb) 3 ml Q2H RESP THERAPY PRN HHN SHORTNESS OF BREATH; Start 12/02/18 at 00:30 Polyethylene Glycol (Miralax) 17 gm DAILY PRN PO CONSTIPATION Last administered on 12/03/18 12:24; Admin Dose 17 GM; Start 12/02/18 at 12:30 Docusate Sodium (Colace) 100 mg BID PRN PO CONSTIPATION; Start 12/02/18 at 12:30 Lactated Ringer's 1,000 ml @ 80 mls/hr [id number] IV Last administered on 12/03/18 08:47; Admin Dose 80 MLS/HR; Start 12/02/18 at 18:43 IV Flush (NS 3 ml) 3 ml PER PROTOCOL IV ; Start 12/02/18 at 19:00 Oxycodone HCl (Roxicodone) 15 mg Q4H PRN PO .PAIN Last administered on 12/03/18 12:19; Admin Dose 15 MG; Start 12/02/18 at 19:00 Oxycodone HCl (Roxicodone) 10 mg Q4H PRN PO .PAIN; Start 12/02/18 at 19:00 Oxycodone HCl (Roxicodone) 5 mg Q4H PRN PO .PAIN; Start 12/02/18 at 19:00 Hydromorphone HCl (Dilaudid) 1 mg Q3H PRN IV .BREAKTHROUGH PAIN Last administered on 12/03/18 18:13; Admin Dose 1 MG; Start 12/02/18 at 19:00 Acetaminophen (Tylenol Tab) 1,000 mg Q8 PO Last administered on 12/03/18 05:54; Admin Dose 1,000 MG; Start 12/02/18 at 22:00 Ondansetron HCl (Zofran Inj) 4 mg Q4H PRN IV NAUSEA/VOMITING; Start 12/03/18 at 19:00 Gabapentin (Neurontin) 300 mg QHS PO Last administered on 12/03/18 21:15; Admin Dose 300 MG; Start 12/02/18 at 21:00 Docusate Sodium (Colace) 200 mg BID PO Last administered on 12/04/18 09:00; Admin Dose 200 MG; Start 12/03/18 at 09:00; Stop 12/06/18 at 08:59 Simethicone (Mylicon) 80 mg TID PRN PO .GAS; Start 12/02/18 at 19:00 Senna/Docusate Sodium (Senokot-S) 2 tab BID PRN PO .CONSTIPATION; Start 12/02/18 at 19:00 Magnesium Hydroxide (Milk Of Mag) 30 ml HS PRN PO .CONSTIPATION Last administered on 12/04/18at 06:37; Admin Dose 30 ML; Start 12/02/18 at 21:00 Bisacodyl (Dulcolax Supp) 10 mg DAILY PRN [place] .CONSTIPATION; Start 12/02/18 at 19:00 Sodium Biphosphate/ Sodium Phosphate (Fleet Enema) 133 ml DAILY PRN [place] .CONSTIPATION; Start 12/02/18 at 19:00 Diphenhydramine HCl (Benadryl) 25 mg Q4H PRN IV .ITCHING; Start 12/02/18 at 19:00 Naloxone HCl (Narcan) 0.2 mg Q2M PRN IV .RESP RATE; Start 12/02/18 at 19:00 Aspirin (Halfprin) 81 mg BID PO Last administered on 12/04/18 09:00; Admin Dose 81 MG; Start 12/03/18 at 09:00 Pantoprazole (Protonix Tab) 40 mg DAILY@06 PO Last administered on 12/04/18 06:32; Admin Dose 40 MG; Start 12/03/18 at 10:00 Amlodipine Besylate (Norvasc) 5 mg DAILY PO Last administered on 12/04/18 09:01; Admin Dose 5 MG; Start 12/03/18 at 09:30 Benazepril HCl (Lotensin) 20 mg DAILY PO Last administered on 12/04/18 09:00; Admin Dose 20 MG; Start 12/03/18 at 09:30 Methadone HCl (Methadone) 50 mg DAILY PO Last administered on 12/04/18 09:04; Admin Dose 50 MG; Start 12/03/18 at 10:00 Potassium Phosphate 15 mm/ Sodium Chloride 255 ml @ 63.75 mls/ hr ONCE ONCE IVPB ; Start 12/04/18 at 10:30; Stop 12/04/18 at 14:29; Status MAURICE DSOUZA December 04, 2018 10:17
[2018-12-04] MEDS: HYDROmorphONE 1 MG/ML SYG IV PRN (10:34)
[2018-12-04] MEDS ORDERED: POTASSIUM PHOSPHATE 15 MM in SOD CHLORIDE 0.9% 250 ML IVPB ONE (11:30)
[2018-12-04] MEDS: oxyCODONE 5 MG TAB PO PRN (13:48)
[2018-12-04 14:28] VITALS: BP 134/70; PULSE 65; RESP 18
[2018-12-04] MEDS ORDERED: ASPI-1044 PO (14:44)
[2018-12-04] MEDS ORDERED: HYDR-4012 PO (14:44)
[2018-12-04] MEDS ORDERED: DOCU-144 PO (14:44)
[2018-12-04] MEDS ORDERED: GABA300C16 PO (14:44)
--- NOTE | 2018-12-04 14:50 | PDOCDIS ---
Discharge Instructions CONDITION [id number] Patient Condition: [id number] Stable HOME CARE INSTRUCTIONS: [id number] Diet Instructions: Ryuxs0r Low Fat /Cholesterol ACTIVITY: [id number] Activity Restrictions: Fiaiw1k Slowly Increase Activity Rest between Activity Avoid heavy lifting Do not Drive Do not operate Machinery Do not operate Power Tool Avoid Heavy Housework [id number] Bathing Restrictions: Mahij9r Shower [id number] Activity Restrictions [id number] elevate right leg on wedge Comment: pillow. FOLLOW UP/APPOINTMENTS Follow-up Plan 1. f/u with Ortho, Dr Valente 2. Patient also needs GI f/u for Hepatitis C management Name, Degree: Girish Regalado MD Specialty: Gastroenterology Comments: Office Address: [id number] [address] Office Office 3. Patient also needs outpatient sleep study f/u with the pulmunologist Dr Henriquez Name, Degree : Vince Henriquez MD Specialty : Critical Care Medicine Office Address : [address] [place] [address] [place] [address] Office Office . MAURICE CHISHOLM December 04, 2018 14:50
--- NOTE | 2018-12-04 15:13 | DS ---
DATE OF ADMISSION: 12/01/2018 DATE OF DISCHARGE: 12/04/2018 FINAL DIAGNOSES: 1. A 68-year-old male who was brought in for elective surgical intervention for right malleolar ankl e fracture status post mechanical fall. He is status post closed reduction in the ER and open reduct ion and internal fixation of medial and lateral malleoli right ankle on 12/02/2018. I also am recomm ending strict elevation of right lower extremity and nonweightbearing for at least 6 weeks. The gutierrez ent resides at home and hence, the patient is being discharged to [facility]. The gutierrez ent also is on chronic methadone therapy for history of illicit drug use. 2. Obstructive sleep apnea, status post echo with preserved EF and no pulmonary hypertension, for ou tpatient sleep study. 3. History of illicit drug use, on methadone. 4. Hypertension with good control. 5. History of hepatitis C for outpatient followup with gastroenterology for further management. CONSULTS ON THE CASE: Sarthak Valente MD, for orthopedic surgery. INTERVENTIONS: The patient had operative intervention of open reduction and internal fixation of med ial and lateral malleoli with application of short leg splint. DISPOSITION: To [facility] as patient is to be nonweightbearing for the next 6 weeks. FOLLOWUP: The patient has been monitored by the physicians at [facility] and will foll ow up with Dr. Valente as per his instructions. DISCHARGE DIET: Low cholesterol, low fat. ACTIVITY: As tolerated, nonweightbearing left lower extremity and keeping strictly elevated. The pa tient will also follow up with physical therapy. DISCHARGE MEDICATIONS: For a complete list of discharge medications, please review the patient's noam rt. DISCHARGE CONDITION: Stable. Time spent on discharge coordination has been more than half hour. Dictated By: MAURICE CHISHOLM MD BA/NTS Conf#: [id number] DID#: [id number] CC: SARTHAK VALENTE MD; MARK VELASQUEZ MD;*EndCC*
[2018-12-04 19:40] VITALS: BP 136/77; PULSE 64; RESP 18
== END 2018-12-04 20:00 | DRG 493 ==
LOC: E/R 18:40 → MS1 21:55
PROVIDERS: ADMIT Internal Medicine; ATTEND Family Medicine
PROC: 0QSGXZZ Reposition Right Tibia, External Approach (ICD-10-PCS; 2018-12-01)
PROC: 0QSJXZZ Reposition Right Fibula, External Approach (ICD-10-PCS; 2018-12-01)
PROC: 3E0U3BZ Introduction of Anesthetic Agent into Joints, Percutaneous Approach (ICD-10-PCS; 2018-12-01)
PROC: 0QSG04Z Reposition Right Tibia with Internal Fixation Device, Open Approach (ICD-10-PCS; 2018-12-02)
PROC: 0QSJ04Z Reposition Right Fibula with Internal Fixation Device, Open Approach (ICD-10-PCS; principal; 2018-12-02 12:00)
DX: S82.851A Displaced trimalleolar fracture of right lower leg, initial encounter for closed fracture (principal); F11.20 Opioid dependence, uncomplicated; B19.20 Unspecified viral hepatitis C without hepatic coma; G47.33 Obstructive sleep apnea (adult) (pediatric); I10 Essential (primary) hypertension; K21.9 Gastro-esophageal reflux disease without esophagitis; W01.0XXA Fall on same level from slipping, tripping and stumbling without subsequent striking against object, initial encounter; Y92.009 Unspecified place in unspecified non-institutional (private) residence as the place of occurrence of the external cause; Z87.891 Personal history of nicotine dependence
CPT/HCPCS: 36415; 71045; 73590; 73630; 80048; 80053; 80069; 83735; 84100; 85025; 85610; 85730; 93005; 93306; 96374; 97116; 97161; 97167; C1713; J0690; J1100; J1170; J1885; J2250; J2270; J2405; J3010; J7042; J7050; J7120

== ENCOUNTER → 2018-12-18 | Outpatient (CLI) | payer OTHER, MEDICAID ==
[~2018-12-18] MED LIST changes: +AMLO1CAP10 PO; +ASPI-1044 PO; +DOCU-144 PO; +GABA300C16 PO; -HTN MEDS; +HYDR-4012 PO; +METH10TA2 PO; +OMEP20CA16 PO
--- NOTE | 2018-12-18 13:42 | CONS ---
Consult Date/Type/Reason Admit Date/Time Initial Consult Date Date/Time of Note DATE: 12/18/18 TIME: 13:38 Subjective Date of surgery: 12/02/2018 Procedure: Open reduction internal fixation right ankle fracture dislocation 68-year-old male 2 weeks status post open reduction internal fixation of medial and lateral malleolus of the right ankle. He has been at an SNF. He has remained nonweightbearing and has been strictly elevating his extremity as instructed. Denies any fevers and chills. States pain is well controlled. Objective Vitals Weight: 180 pounds Height: 5 feet 10 inches Temperature: 98.1 Heart Rate: 69 Blood Pressure: 130/71 Respiratory Rate: 14 Exam General: Awake, alert, in no acute distress, pleasant and cooperative Heart: regular rhythm Lungs: breathing comfortably, no tachypnea or dyspnea MUSCULOSKELETAL: Right lower extremity: Medial and lateral incisions are healing well and are clean, dry, intact except for 1/2 cm portion of the mid lateral incision where superficial sloughing of the epidermis is appreciated. There is no drainage. No erythema. Swelling is significantly decreased with wrinkles. Sensation intact to light touch in a sural, saphenous, deep peroneal, superficial peroneal, medial and lateral plantar nerve distribution. Motor is intact, patient able to dorsiflex and plantarflex ankle and extend and flex great toe. Dorsalis Pedis pulse +2, Brisk capillary refill. Compartments are soft. Calves non-tender to palpation bilaterally. Results/Medications Home Meds Active Scripts Hydrocodone/Acetaminophen ([place] 7.5-325 Tablet) 1 Each Tablet, 1 EACH PO Q6H for 2 Days, TAB Prov:MAURICE CHISHOLM 12/04/18 Docusate Sodium* (Colace*) 100 Mg Capsule, 200 MG PO BID, #30 CAP Prov:MAURICE CHISHOLM 12/04/18 Gabapentin* (Gabapentin*) 300 Mg Capsule, 300 MG PO QHS, #14 CAP Prov:MAURICE CHISHOLM. 12/04/18 Aspirin Delayed Release (Aspirin Delayed Release) 81 Mg Tablet.dr, 81 MG PO BID for 42 Days, TAB for DVT prophylaxis Prov:MAURICE CHISHOLM 12/04/18 Reported Medications Methadone Hcl* (Methadone*) 10 Mg Tab, 40 MG PO DAILY, TAB 12/01/18 Omeprazole* (Omeprazole*) 20 Mg Capsule., 20 MG PO DAILY, #30 CAP 12/01/18 Amlodipine Besylate/Benazepril (Amlodipine-Benazepril 5-20 mg) 1 Each Capsule, 1 CAP PO DAILY for 90 Days, #90 TAKE ONE CAPSULE BY MOUTH EVERY DAY 12/01/18 Imaging X-rays from outside facility of the right ankle were available for review. 2 views of the right ankle and AP and lateral demonstrate open reduction internal fixation of the medial and lateral malleolus. Reduction is maintained. Hardware is in place with no change from immediate postoperative x-rays. No acute complications. Assessment/Plan Hospital Course (Demo Recall) 68-year-old male 2 weeks status post open reduction internal fixation right ankle fracture dislocation. Overall he is doing very well. The fracture was extremely comminuted and the bone quality was not great. Therefore recommending continued nonweightbearing of the right lower extremity for at least 6 weeks from the date of surgery. The sutures were removed today. Steri-Strips were placed. I would like him to avoid getting the incisions wet for 1 more week. After that soapy water can be run over the wounds and then pat dry. The patient was placed back in his splint until he gets the facility. Once there a call fracture boot will be ordered and he will be changed into that as soon as it arrives. He is to remain nonweightbearing. Dressings can be changed as needed. He is to follow-up in 4 weeks with 3 views of the right ankle. SARTHAK ESCAMILLA MD December 18, 2018 13:42
== END | disposition home or self-care (01) ==
LOC: HKI 11:49
PROVIDERS: ATTEND Orthopaedic Surgery Adult Reconstructive Orthopaedic Surgery
DX: S82.891D Other fracture of right lower leg, subsequent encounter for closed fracture with routine healing (principal); X58.XXXD Exposure to other specified factors, subsequent encounter

== ENCOUNTER → 2019-01-18 | Outpatient (CLI) | payer OTHER, MEDICAID ==
--- NOTE | 2019-01-18 17:09 | CONS ---
Consult Date/Type/Reason Admit Date/Time Initial Consult Date Date/Time of Note DATE: 01/18/19 TIME: 17:04 Subjective Date of surgery: 12/02/2018 Procedure: Open reduction internal fixation right ankle fracture dislocation 68-year-old male 6 weeks status post open reduction internal fixation of medial and lateral malleolus of the right ankle. He has been at home. He has remained nonweightbearing and has been sweating the boot. Comes out of the boot for ROM exercises. Home PT is ending. He has no transportation to go to outpatient PT. Denies any fevers and chills. States pain is well controlled. Objective Exam General: Awake, alert, in no acute distress, pleasant and cooperative Heart: regular rhythm Lungs: breathing comfortably, no tachypnea or dyspnea MUSCULOSKELETAL: Right lower extremity: Medial and lateral incisions are well healed. No erythema. Swelling is sign ificantly decreased with wrinkles. Sensation intact to light touch in a sural, saphenous, deep peroneal, superficial peroneal, medial and lateral plantar nerve distribution. Motor is intact, patient able to dorsiflex and plantarflex ankle and extend and flex great toe. Dorsalis Pedis pulse +2, Brisk capillary refill. Compartments are soft. Calves non-tender to palpation bilaterally. Results/Medications Home Meds Active Scripts Hydrocodone/Acetaminophen ([place] 7.5-325 Tablet) 1 Each Tablet, 1 EACH PO Q6H for 2 Days, TAB Prov:MAURICE CHISHOLM. 12/04/18 Docusate Sodium* (Colace*) 100 Mg Capsule, 200 MG PO BID, #30 CAP Prov:MAURICE CHISHOLM. 12/04/18 Gabapentin* (Gabapentin*) 300 Mg Capsule, 300 MG PO QHS, #14 CAP Prov:MAURICE CHISHOLM . 12/04/18 Aspirin Delayed Release (Aspirin Delayed Release) 81 Mg Tablet., 81 MG PO BID for 42 Days, TAB for DVT prophylaxis Prov:MAURICE CHISHOLM . 12/04/18 Reported Medications Methadone Hcl* (Methadone*) 10 Mg Tab, 40 MG PO DAILY, TAB 12/01/18 Omeprazole* (Omeprazole*) 20 Mg Capsule., 20 MG PO DAILY, #30 CAP 12/01/18 Amlodipine Besylate/Benazepril (Amlodipine-Benazepril 5-20 mg) 1 Each Capsule, 1 CAP PO DAILY for 90 Days, #90 TAKE ONE CAPSULE BY MOUTH EVERY DAY 12/01/18 Imaging X-rays from outside facility of the right ankle were available for review. 3 views of the right ankle and AP and lateral demonstrate open reduction internal fixation of the medial and lateral malleolus. Reduction is maintained. Hardware is in place with no change from immediate postoperative x-rays. No acute complications. Fracture is healing. Assessment/Plan Hospital Course (Demo Recall) 68-year-old male 6 weeks status post open reduction internal fixation right a nkle fracture dislocation. Overall he is doing very well. The fracture is healing well. Patient will need continued home physical therapy as he has no way of getting to an outpatient physical therapy office as he is not able to drive himself at this point. He needs continued therapy for gait training, range of motion of the ankle and strengthening of the ankle. Patient is allowed to be 50% weightbearing starting today. In about 2 weeks I want him to increase to about 75% and then at 4 weeks become weightbearing as tolerated. He is to wear the boot for another 6 weeks. After that he will likely go into a lace up ankle brace. He is to follow-up in 6 weeks with 3 views of the right ankle. SARTHAK ESCAMILLA MD Jan 18, 2019 17:09
== END | disposition home or self-care (01) ==
LOC: HKI 14:11
PROVIDERS: ATTEND Orthopaedic Surgery Adult Reconstructive Orthopaedic Surgery
DX: S82.891D Other fracture of right lower leg, subsequent encounter for closed fracture with routine healing (principal); X58.XXXD Exposure to other specified factors, subsequent encounter